=== PATIENT | female | born 1995 ===

== ENCOUNTER 2025-02-25 10:48 | Emergency (ER) | payer SELFPAY ==
[~2025-02-25 10:48] MED LIST: Iopamidol-370 76% 500 ML MDV (1 ML CHARGE) ONE
[2025-02-25] MEDS ORDERED: Ketorolac Tromethamine 30 MG (1 mL) VIAL ONE (12:37)
[2025-02-25 13:13] LABS: BHCG - Serum Negative (NEGATIVE); Pregs Control Background? CLEAR/WHITE (CLR/WHITE); Pregs Control Bar Appear? YES (CONTROL BAR)
== END 2025-02-25 14:15 | disposition home or self-care (01) ==
LOC: ERS 10:48
DX: S06.0X0A Concussion without loss of consciousness, initial encounter (principal); Z79.899 Other long term (current) drug therapy; W50.1XXA Accidental kick by another person, initial encounter
CPT/HCPCS: 70450; 70498; 84703; 96374; J1885